=== PATIENT | female | born 2000 | race Hispanic/Latino ===

== ENCOUNTER 2022-09-04 19:23 | Observation (INO) | payer MEDICAID ==
[~2022-09-04] VITALS: Ht 160 cm; Wt 72.6 kg
[2022-09-04 19:51] VITALS: BP 137/74
[2022-09-04] MEDS ORDERED: LACTATED RINGERS 1000ML 1,000 ML IV SCH ×2 (20:00→22:00)
[2022-09-04 20:30] LABS: AMPHET/METH SCREEN,URINE NEGATIVE (NEGATIVE); APPEARANCE,URINE CLEAR (CLEAR); BARBITURATE SCREEN, URINE NEGATIVE (NEGATIVE); BENZODIAZEPINES SCREEN,URINE NEGATIVE (NEGATIVE); BILIRUBIN,URINE NEGATIVE (NEGATIVE); CANNABINOID SCREEN,URINE NEGATIVE (NEGATIVE); COCAINE SCREEN,URINE NEGATIVE (NEGATIVE); COLOR,URINE LIGHT-YELLOW (YELLOW); GLUCOSE, URINE (UA) NEGATIVE (NEGATIVE); KETONES,URINE NEGATIVE (NEGATIVE); LEUKOCYTE ESTERASE ,URINE NEGATIVE Leu/uL (NEGATIVE); NITRATE,URINE NEGATIVE (NEGATIVE); OCCULT BLOOD,URINE NEGATIVE (NEGATIVE); OPIATE SCREEN,URINE NEGATIVE (NEGATIVE); PH,URINE 6.5 (5.0-8.0); PHENCYCLIDINE SCREEN,URINE NEGATIVE (NEGATIVE); PROTEIN,URINE NEGATIVE (NEGATIVE); UROBILINOGEN,URINE 0.2 mg/dL (0.2-1.0)
== END 2022-09-04 20:40 | disposition home or self-care (01) ==
LOC: EDH 19:23 → LDH 19:46
PROVIDERS: ADMIT Obstetrics & Gynecology; ATTEND Obstetrics & Gynecology
DX: O36.8130 Decreased fetal movements, third trimester, not applicable or unspecified (principal); Z3A.39 39 weeks gestation of pregnancy
CPT/HCPCS: 96360; 59025; 76819; 80305; 81003; G0378; G0379

== ENCOUNTER 2022-12-22 18:20 | Emergency (ER) | payer MEDICAID ==
[~2022-12-22] VITALS: Ht 167.6 cm; Wt 59.0 kg
[~2022-12-22 18:20] MED LIST: ACET-2079 PO; PNV-5 PO
[2022-12-22 19:42] LABS: APPEARANCE,URINE CLOUDY (CLEAR); BILIRUBIN,URINE NEGATIVE (NEGATIVE); COLOR,URINE YELLOW (YELLOW); GLUCOSE, URINE (UA) NEGATIVE (NEGATIVE); KETONES,URINE 150 mg/dL (NEGATIVE); LEUKOCYTE ESTERASE ,URINE 500 Leu/uL (NEGATIVE); NITRATE,URINE NEGATIVE (NEGATIVE); OCCULT BLOOD,URINE MODERATE (NEGATIVE); PROTEIN,URINE 100 mg/dL (NEGATIVE)
[2022-12-22 19:46] LABS: HCG,QUALITATIVE URINE POSITIVE (NEGATIVE)
[2022-12-22 19:51] LABS: BACTERIA,URINE FEW /HPF (None Seen); MUCUS,URINE RARE LPF (None Seen); RBC,URINE 51-100 /HPF (0-1); SQUAMOUS EPITHELIAL CELL,UR RARE /HPF (0-2); WBC,URINE 26-50 /HPF (0-1); YEAST,URINE BUDDING MOD /HPF (None Seen)
[2022-12-22] MEDS ORDERED: 0.9%NACL 1000ML 1,000 ML IV ONE (20:00)
[2022-12-22] MEDS ORDERED: CEFTRIAXONE 1G VIAL IVPB ONE (20:00)
[2022-12-22 20:33] LABS: BASOPHILS % (AUTO) 0.3 % (0.0-5.0); EOSINOPHILS % (AUTO) 0.2 % (0.0-8.0); HEMATOCRIT 38.7 % (36-48); LYMPHOCYTES % (AUTO) 15.1 % (21.0-51.0); MEAN CORPUSCULAR HEMOGLOBIN 26.9 pg (27.0-33.0); MEAN CORPUSCULAR HGB CONC 32.6 g/dL (32.0-36.0); MEAN CORPUSCULAR VOLUME 82.5 fL (79-99); MONOCYTES % (AUTO) 11.2 % (3.0-13.0); PLATELET COUNT (AUTO) 206 K/uL (130-400); RED BLOOD CELL COUNT(AUTO) 4.69 MIL/uL (4.00-5.50); RED CELL DISTRIBUTION WIDTH 14.1 % (11.0-15.5); WHITE BLOOD COUNT (AUTO) 6.4 K/uL (4.8-10.8)
[2022-12-22 20:56] LABS: ALBUMIN 3.7 g/dL (3.5-5.0); CREATININE 0.7 mg/dL (0.5-1.5); POTASSIUM 3.2 mmol/L (3.5-5.1); TOTAL PROTEIN, SERUM 7.8 g/dL (6.0-8.3)
[2022-12-22] MEDS ORDERED: POTASSIUM BICARB/CIT AC 25 MEQ TABLET.EFF PO ONE (21:30)
[2022-12-22 23:22] VITALS: BP 108/65
[2022-12-22] MEDS ORDERED: AMOX1TAB16 PO (23:36)
== END 2022-12-22 23:49 | disposition home or self-care (01) ==
LOC: EDH 18:20
DX: O23.41 Unspecified infection of urinary tract in pregnancy, first trimester (principal); N39.0 Urinary tract infection, site not specified; Z3A.08 8 weeks gestation of pregnancy; Z20.822 Contact with and (suspected) exposure to COVID-19
CPT/HCPCS: 99285; 96365; 76801; 87635; 80053; 84702; 85025; 87077; 87088; 87186; 87880; 87804 ×2; 81001; 81025; 36415; C9803; J7030; J0696

== ENCOUNTER 2023-06-10 23:42 | Emergency (ER) | payer MEDICAID ==
[~2023-06-10] VITALS: Ht 157.5 cm; Wt 65.3 kg
[~2023-06-10 23:42] MED LIST changes: +AMOX1TAB16 PO
[2023-06-11 00:16] LABS: RAPID GROUP A STREP negative (NEGATIVE)
[2023-06-11 00:20] LABS: SARS-CoV-2, RNA, NAAT NEGATIVE SARS CoV-2 (NEGATIVE)
[2023-06-11 00:25] LABS: INFLUENZA TYPE B Negative For Type B (NEGATIVE)
[2023-06-11 00:45] LABS: INFLUENZA TYPE A Positive For Type A (NEGATIVE)
[2023-06-11 02:28] VITALS: BP 108/62; PULSE 99; RESP 20; O2SAT 98
[2023-06-11] MEDS ORDERED: ACET-66 PO (02:48)
[2023-06-11] MEDS ORDERED: ONDA4TAB10 PO (02:48)
== END 2023-06-11 02:53 | disposition home or self-care (01) ==
LOC: EDH 23:42
DX: J06.9 Acute upper respiratory infection, unspecified (principal); Z20.822 Contact with and (suspected) exposure to COVID-19
CPT/HCPCS: 99283; 87635; 87880; 87804 ×2; C9803

== ENCOUNTER 2025-06-28 20:22 | Emergency (ER) | payer SELFPAY ==
[~2025-06-28] VITALS: Ht 160 cm; Wt 64.4 kg
[~2025-06-28 20:22] MED LIST changes: +ACET-66 PO; +ONDA-243 PO
[2025-06-28 20:27] VITALS: BP 115/72; TEMP 98.1
[2025-06-28 20:43] LABS: RAPID GROUP A STREP negative (NEGATIVE)
--- NOTE | 2025-06-28 20:43 | ERN ---
ED Note History of Present Illness Stated Complaint: C/O COUGH,CONGESTION, SORE THROAT X 5 DAYS Chief Complaint: Cough Time Seen by MD: 20:26 Time Seen by Midlevel: 20:30 Dictation: PATIENT IS A 24-YEAR-OLD FEMALE COMING IN WITH FLU-LIKE SYMPTOMS TO INCLUDE SORE THROAT WITH PAINFUL SWALLOWING BODY ACHES, FEVER CLEAR RHINITIS AND COUGH FOR THE LAST 4-5 DAYS. NO NAUSEA VOMITING NO DIARRHEA. SHE HAS BEEN TAKEN [id number] COLD REMEDIES COMPOUNDS. SHE STATES SHE HAS NO PRIMARY CARE DOCTOR. Allergies: Coded Allergies: No Known Drug Allergies (Unverified Allergy, Unknown, 09/04/22) Home Meds Active Scripts Ondansetron (Ondansetron Odt) 4 Mg Tab.rapdis, 4 MG PO ONCE, #30 TAB Prov:TYRESE MATTHEWS MD 06/11/23 Acetaminophen (Acetaminophen) 500 Mg Tablet, 1000 MG PO TIDP PRN for FEVER, #60 TAB Prov:TYRESE MATTHEWS MD 06/11/23 Amoxicillin/Potassium Clav (Amox Tr-K Clv 875-125 mg Tab) 1 Each Tablet, 1 EACH PO BID for 10 Days, #20 TAB Prov:KADIE ZAVALA V [employer] 12/22/22 Reported Medications Acetaminophen with Codeine (Acetaminophen-Cod #3 Tablet) 1 Each Tablet, 1 EACH PO Q6HPRN PRN for PAIN, TAB 09/10/22 Pnv 119/Iron Fum/Folic Acid ( 19 Tablet) 1 Each Tablet, 1 EACH PO AM, TAB 09/09/22 Past Medical History Past Medical History: No Pertinent History Surgical History: None Family History: Negative Social History: Negative, Lives with family History: Not Applicable RN Note Reviewed/Agreed w/PFSH: Yes Review of System Dictation CONSTITUTIONAL: NEGATIVE EXCEPT FOR HPI HEAD/FACE: NEGATIVE EXCEPT FOR HPI EENT: NEGATIVE EXCEPT FOR HPI SORE THROAT WITH PAINFUL SWALLOWING/CLEAR RHINITIS RESPIRATORY: NEGATIVE EXCEPT FOR HPI PERSISTENT DRY COUGH GASTROINTESTINAL/ABDOMINAL: NEGATIVE EXCEPT FOR HPI GENITOURINARY: NEGATIVE EXCEPT FOR HPI MUSCULOSKELETAL: NEGATIVE EXCEPT FOR HPI INTEGUMENTARY: NEGATIVE EXCEPT FOR HPI NEUROLOGICAL/PSYCH: NEGATIVE EXCEPT FOR HPI HEMATOLOGIC/LYMPHATIC: NEGATIVE EXCEPT FOR HPI ALL SYSTEMS NEGATIVE, EXCEPT NOTED ABOVE. 13 POINT REVIEW OF SYSTEMS ASSESSED AND ALL NEGATIVE EXCEPT FOR ABOVE. Initial Vital Sign VS Vital Signs Date Time Temp Pulse Resp B/P (MAP) Pulse Ox O2 Delivery O2 Flow Rate FiO2 06/28/25 20:27 98.1 106 20 115/72 100 Room Air Physical Exam Dictation VITAL SIGNS REVIEWED GENERAL APPEARANCE: ALERT, ORIENTED X 3, MILD ACUTE DISTRESS, WELL DEVELOPED, NOURISHED. HEAD AND FACE: NON-TRAUMATIC. EYES: PERRL, PINK CONJUNCTIVAS, EYELID NO TRAUMA, ANTERIOR CHAMBER WITH ARCUS SENILIS. EARS: PINNAS INTACT AND NO SIGNS OF TRAUMA OR ERYTHEMA EAR CANALS CLEAR AND NO DISCHARGE TM NO ERYTHEMA NOSE: NO DISCHARGE, NO BLEEDING. OROPHARYNX: MOUTH NORMAL, TONGUE PINK, PHARYNX CLEAR,NO ERYTHEMA, TONSILS 3/4 BILATERALLY AND CRYPTIC., NO ABSCESSES NOTED, MUCOUS MEMBRANE MOIST MIDLINE, VOICE IS CLEAR NECK: SUPPLE, NON-TENDER, NO THYROMEGALY, NO MASSES, NO JVD, NO BRUITS BREAST:DEFERRED CHEST:NO TENDERNESS, NO CREPITUS, NO PARADOXICAL MOVEMENT, NO RETRACTIONS LUNGS:CLEAR, WELL-VENTILATED, SYMMETRIC, MILD EXPIRATORY WHEEZING TO BILATERAL UPPER LIP PERSISTENT DRY COUGH NOTED HEART: REGULAR RATE, REGULAR RHYTHM, NO MURMUR, NO GALLOPS VASCULAR: NO PERIPHERAL EDEMA, ABDOMEN: SOFT, POSITIVE BOWEL SOUNDS, NONDISTENDED, NO GUARDING, NONTENDER, NO REBOUND, NO MASSES NO HEPATOMEGALY, NO SPLENOMEGALY, NO VILLAGOMEZ'S SIGN, NO HERNIAS. RECTAL: DEFERRED GENITAL: DEFERRED NEUROLOGICAL: NORMAL SPEECH, MOTOR FUNCTION INTACT, SENSORY FUNCTION INTACT MUSCULOSKELETAL: NECK NONTENDER, FULL RANGE OF MOTION, BACK NONTENDER, FULL RANGE OF MOTION, EXTREMITIES: NONTENDER, FULL RANGE OF MOTION SKIN: COLOR PINK, DRY, NO TURGOR, NO RASH, NO LACERATIONS, NO ABRASIONS, NO CONTUSIONS. LYMPHATIC: DEFERRED Results (Laboratory/Radiology) Laboratory/Radiology Laboratory Tests Test 06/28/25 20:30 Influenza Type A Antigen Negative For Type A Influenza Type B Antigen Negative For Type B SARS-CoV-2, RNA, NAAT NEGATIVE SARS CoV-2 Group A Streptococcus Rapid negative (NEGATIVE) Labs Reviewed?: Yes ED Course ED Course Orders Procedure Category Date Status Time Covid Rna Naat LAB 06/28/25 Complete 20:26 Influenza Type A & B, LAB 06/28/25 Complete Rapid 20:26 Rapid (Group A Strep) LAB 06/28/25 Complete 20:26 Acetaminophen 500mg PHA 06/28/25 Complete Tab (Tylenol 500mg T 21:00 Dexamethasone 4mg/Ml PHA 06/28/25 Complete 1ml Vial (Dexametha 21:00 Albuterol 0.083% PHA 06/28/25 Complete 2.5mg/3ml (Proventil 21:00 Current Medications Medications (Trade) Dose Ordered Sig/Nick Route PRN Reason Start Time Stop Time Status Last Admin Dose Admin Acetaminophen (TYLenol 500MG TAB) 1,000 mg ONCE ONCE PO 06/28/25 21:00 06/28/25 21:01 DC 06/28/25 21:22 Albuterol Sulfate (Proventil 0.083% 2.5mg/3ml) 2.5MG = 3ML ONCE ONCE IH 06/28/25 21:00 06/28/25 21:01 DC 06/28/25 21:11 Dexamethasone Sodium Phosphate (dexaMETHasone 4MG/ML 1ML VIAL) 8 mg ONCE ONCE IM 06/28/25 21:00 06/28/25 21:01 DC 06/28/25 21:22 Vital Signs Date Time Temp Pulse Resp B/P (MAP) Pulse Ox O2 Delivery O2 Flow Rate FiO2 06/28/25 21:14 103 22 06/28/25 20:27 98.1 106 20 115/72 100 Room Air 2135/SWABS FOR FLU COVID AND STREP ARE NEGATIVE. PATIENT GIVEN TYLENOL WITH ALBUTEROL NEBULIZER AND SHOT OF DECADRON. SHE STATES SHE FEELS MARKEDLY IMPROVED SATURATING 100% ON ROOM AIR. NO TACHYPNEA AND BILATERAL BREATH SOUNDS CLEAR Medical Decision Making MDM MEDICAL DECISION-MAKING BASED ON SWABS FOR FLU COVID AND STREP. ALL SWABS NEGATIVE PATIENT WILL BE TREATED EMPIRICALLY FOR ACUTE TONSILLITIS UNSPECIFIED SENT HOME WITH THE AZITHROMYCIN 500 DAILY FOR SEVEN DAYS ALBUTEROL INHALER PATIENT PROVIDED LIST OF PRIMARY CARE DOCTORS ON STAFF TO FOLLOW UP IN THE NEXT 2-3 DAYS IF NO IMPROVEMENT DX & DISP Disposition: Discharge Departure Impression: Primary Impression: Acute tonsillitis, unspecified Additional Impressions: Viral URI with cough, Bronchospasm Condition: Stable Scripts Albuterol Sulfate (Ventolin Hfa/Proventil Hfa/Proair Hfa) 90 Mcg Puff 2 PUFF IH Q4H PRN for SHORTNESS OF BREATH/WHEEZING for 30 Days, #1 INH 0 Refills Prov: TIGRE PAYAN [employer] 06/28/25 Azithromycin (Zithromax Tri-Kel) 500 Mg Tablet 500 MG PO DAILY for 7 Days, #7 TAB Prov: TIGRE PAYAN 06/28/25 Additional Instructions: FOLLOW-UP WITH PRIMARY CARE PROVIDER IN 1 TO 2 DAYS. TAKE MEDICATIONS DIRECTED HERE IN THE EMERGENCY ROOM. OKAY TO CONTINUE HOME MEDICATIONS UNLESS OTHERWISE DISCUSSED DURING YOUR VISIT IN THE EMERGENCY ROOM TODAY. RETURN TO YOUR NEAREST EMERGENCY ROOM IF SYMPTOMS WORSEN OR IF THERE IS NO IMPROVEMENT. CALL 911 IF YOU NEED IMMEDIATE ASSISTANCE. TAKE TYLENOL OR MOTRIN [id number] NEEDED AND IF NO CONTRAINDICATIONS ARE PRESENT. INCREASE ORAL HYDRATION. A WOUND CULTURE OR URINE CULTURE WAS ORDERED HERE IN THE EMERGENCY ROOM DEPARTMENT PLEASE FOLLOW-UP WITH PRIMARY CARE PROVIDER AND ADVISE THEM TO GET REPEAT PORTS FROM OUR FACILITY. IF YOU HAD ANY BASSEM WRAP/SPLINTS THAT WERE APPLIED HERE, PLEASE DO NOT REMOVE THEM UNTIL YOU SEE YOUR PRIMARY CARE OR SPECIALTY. AZITHROMYCIN DIRECTED UNTIL GONE. USE ALBUTEROL INHALER EVERY 4 HOURS WHILE AWAKE FOR THE NEXT TWO DAYS. SUGGEST ROBITUSSIN/[id number] DIRECTED FOR YOUR COUGH TYLENOL ONLY FOR PAIN OR FEVER TO YOUR STATUS IS KNOWN. Referrals: SELF,REFERRAL (PCP) Time of Disposition: 21:37 I have reviewed the case, and I agree with, Diagnosis and Plan TIGRE PAYAN Jun 28, 2025 20:43
[2025-06-28 20:53] LABS: SARS-CoV-2, RNA, NAAT NEGATIVE SARS CoV-2 (NEGATIVE)
[2025-06-28 21:00] LABS: INFLUENZA TYPE A Negative For Type A (NEGATIVE); INFLUENZA TYPE B Negative For Type B (NEGATIVE)
[2025-06-28] MEDS: ALBUTEROL 0.083% 2.5 MG/3 ML INH IH ONE (21:11)
[2025-06-28 21:14] VITALS: PULSE 103; RESP 22
[2025-06-28] MEDS ORDERED: ALBUHFA IH (21:38)
[2025-06-28] MEDS ORDERED: AZIT500T2 PO (21:38)
== END 2025-06-28 21:55 | disposition home or self-care (01) ==
LOC: EDH 20:22
DX: J03.80 Acute tonsillitis due to other specified organisms (principal); B97.89 Other viral agents as the cause of diseases classified elsewhere; J98.01 Acute bronchospasm; Z20.822 Contact with and (suspected) exposure to COVID-19; Z79.899 Other long term (current) drug therapy
CPT/HCPCS: 99283; 87635; 87880; 87804 ×2; 96372; 94640; J1100